=== PATIENT | female | born 1940 | race Two or more races ===

== ENCOUNTER 2024-05-12 07:58 | Inpatient (IN) | payer OTHER ==
[~2024-05-12] VITALS: Ht 170.2 cm; Wt 95.9 kg
[~2024-05-12 07:58] MED LIST: ACET-1080 PO; ATOR20TA PO; LOSA100T25 PO; MULT1CHW PO; NAP500T PO
[2024-05-12] MEDS: ROPIVACAINE 0.5% (5MG/ML) 20ML AMPULE IJ ONE ×2 (08:32→10:56)
[2024-05-12] MEDS: TRANEXAMIC ACID 20 ML ONE (08:32)
[2024-05-12] MEDS: ceFAZolin 2 GM/D5W50ml 50 ML IV ONE (08:49)
[2024-05-12] MEDS ORDERED: MIDAZOLAM HCL 2MG/2ML 2ml VIAL (1mg/ml) ONE (09:13)
[2024-05-12] MEDS ORDERED: fentaNYL CITRATE 100 MCG/2 ML VL ONE (09:13)
[2024-05-12] MEDS ORDERED: PROPOFOL 10 MG/ML 20 ML IV ONE (09:15)
[2024-05-12] MEDS: CEFEPIME 1GM/ 50ML 50 ML IV ONE ×2 (09:49→16:11)
[2024-05-12] MEDS: VANCOMYCIN HCL 1000 MG VL ONE (10:35)
[2024-05-12] MEDS ORDERED: ePHEDrine SULFATE 50 MG/ML AMP ONE (11:07)
[2024-05-12] MEDS ORDERED: PHENYLEPHRINE HCL 10 MG/ML VL ONE (11:07)
[2024-05-12] MEDS ORDERED: oxyCODONE HCL 5MG TAB PO PRN (11:30)
[2024-05-12] MEDS ORDERED: ONDANSETRON HCL 4 MG/2 ML VIAL IV PRN (11:45)
[2024-05-12 11:57] VITALS: O2SAT 100
[2024-05-12] MEDS ORDERED: HYDROmorphone HCL 2 MG/ML VL/or syr IV PRN (12:15)
[2024-05-12] MEDS: KETOROLAC TROMETH 30 MG/ML 1ML VIAL IV SCH (14:40)
[2024-05-12] MEDS: oxyCODONE HCL 5MG TAB PO PRN (14:46)
[2024-05-12] MEDS: ACETAMINOPHEN 325 MG TAB PO SCH (16:11)
[2024-05-12] MEDS: ceFAZolin 2 GM/D5W50ml 50 ML IV SCH (16:12)
[2024-05-12] MEDS: ONDANSETRON HCL 4 MG/2 ML VIAL IV ONE (16:12)
[2024-05-12 16:37] VITALS: BP 138/79; PULSE 86; RESP 18; TEMP 97.5; O2SAT 96
[2024-05-12] MEDS: SODIUM CHLORIDE 0.9% 1,000 ML IV SCH (16:43)
[2024-05-12 17:00] VITALS: BP 127/68; PULSE 102; RESP 15; TEMP 98.5; O2SAT 97
[2024-05-12 20:00] VITALS: PULSE 86; RESP 18; O2SAT 96
[2024-05-12 22:00] VITALS: BP 106/61; PULSE 100; RESP 16; TEMP 99.6; O2SAT 95
[2024-05-12] MEDS: PREGABALIN 25 MG CAP PO SCH (22:03)
[2024-05-13] VITALS (7 sets, daily range): BP systolic 97–133; BP diastolic 51–87; PULSE 61–103; RESP 16–18; TEMP 98–99.2; O2SAT 95–96
[2024-05-13 06:52] LABS: Basophils # (auto) 0 10 ^3/uL (0-0.2); Basophils % (auto) 0.5 % (0.0-2.0); Eosinophils # (auto) 0 10 ^3/uL (0-0.8); Eosinophils % (auto) 0.4 % (0.0-7.0); Hematocrit 30.1 % (36.0-46.0); Hemoglobin 10.2 g/dL (12.2-16.2); Lymphocytes # (auto) 1.4 10 ^3/uL (0.4-5.4); Lymphocytes % (auto) 18.7 % (10.0-50.0); Mean Corpuscular Hemoglobin 31.1 pg (28.0-32.0); Mean Corpuscular Hgb Conc. 33.9 g/dL (32.0-36.0); Mean Corpuscular Volume 91.8 fL (80.0-100.0); Monocytes # (auto) 0.9 10 ^3/uL (0-1.3); Monocytes % (auto) 11.9 % (0.0-12.0); Neutrophils # (auto) 5.2 10 ^3/uL (1.6-8.6); Neutrophils % (auto) 68.5 % (37.0-80.0); Platelet Count (auto) 215 10^3/uL (140-450); Red Blood Cells 3.28 10^6/uL (4.0-5.20); Red Cell Distribution Width 13.2 % (11.8-14.3); White Blood Cell 7.6 10^3/uL (4.4-10.8)
[2024-05-13 07:00] LABS: Calcium 8.8 mg/dL (8.7-10.4); Chloride 107 mmol/L (98-107); Potassium 3.4 mmol/L (3.5-5.1); Sodium 139 mmol/L (136-145)
[2024-05-13 07:01] LABS: Anion Gap 7 (5-15); Carbon Dioxide 25 mmol/L (20-30)
[2024-05-13 07:06] LABS: BUN/Creatinine Ratio 23.7 (10.0-20.0); Blood Urea Nitrogen 18 mg/dL (9-23); Glucose 115 mg/dL (74-106)
[2024-05-13] MEDS ORDERED: PATIENTS OWN MEDICATION (Losartan Potassium & Hydrochlo (Hyzaar) 1 TAB) PO SCH (10:00)
[2024-05-13] MEDS: ATORVASTATIN 20 MG TAB PO SCH (10:13)
[2024-05-13] MEDS: LOSARTAN POTASSIUM 50 MG TAB PO SCH (10:14)
[2024-05-13] MEDS: APIXABAN 2.5 MG TAB PO SCH (10:15)
[2024-05-13] MEDS: hydroCHLOROthiazide 25 MG TAB PO SCH (10:15)
[2024-05-13] MEDS: SULFAMETHOX W/TRIMETH(800/160MG) DS TAB PO SCH (11:05)
[2024-05-14] VITALS (7 sets, daily range): BP systolic 112–145; BP diastolic 59–71; PULSE 83–104; RESP 17–19; TEMP 98.5–99.6; O2SAT 93–98
[2024-05-14 11:09] LABS: Basophils # (auto) 0 10 ^3/uL (0-0.2); Basophils % (auto) 0.5 % (0.0-2.0); Eosinophils # (auto) 0.1 10 ^3/uL (0-0.8); Eosinophils % (auto) 1.2 % (0.0-7.0); Hematocrit 30.8 % (36.0-46.0); Hemoglobin 10.3 g/dL (12.2-16.2); Lymphocytes # (auto) 1.5 10 ^3/uL (0.4-5.4); Lymphocytes % (auto) 16.2 % (10.0-50.0); Mean Corpuscular Hemoglobin 30.8 pg (28.0-32.0); Mean Corpuscular Hgb Conc. 33.3 g/dL (32.0-36.0); Mean Corpuscular Volume 92.5 fL (80.0-100.0); Monocytes # (auto) 0.8 10 ^3/uL (0-1.3); Neutrophils # (auto) 6.6 10 ^3/uL (1.6-8.6); Neutrophils % (auto) 73.1 % (37.0-80.0); Platelet Count (auto) 241 10^3/uL (140-450); Red Blood Cells 3.33 10^6/uL (4.0-5.20); Red Cell Distribution Width 13.1 % (11.8-14.3)
== END 2024-05-14 20:15 | disposition home health service (06) | DRG 470 ==
LOC: SUR 07:58 → OVERFLOW 11:48 → WEST WING 15:35
PROVIDERS: ADMIT Orthopaedic Surgery; ATTEND Orthopaedic Surgery
PROC: 0SR904Z Replacement of Right Hip Joint with Ceramic on Polyethylene Synthetic Substitute, Open Approach (ICD-10-PCS; principal; 2024-05-12 09:46)
DX: M16.11 Unilateral primary osteoarthritis, right hip (principal)
CPT/HCPCS: 36415; 72170; 73502; 80048; 85025; 86850; 86900; 86901; 97110; 97116; 97163; 97530; G0378; J1885; J2250; J2704

== ENCOUNTER 2024-09-24 06:09 | Inpatient (IN) | payer OTHER ==
[~2024-09-24] VITALS: Ht 170.2 cm; Wt 95.8 kg
[2024-09-24] VITALS (7 sets, daily range): BP systolic 98–111; BP diastolic 49–72; PULSE 61–86; RESP 12–18; TEMP 97.6–97.7; O2SAT 89–98
[2024-09-24] MEDS ORDERED: ONDANSETRON HCL 4 MG/2 ML VIAL ONE (06:57)
[2024-09-24] MEDS ORDERED: DexAMETHasone SOD PHOS 10MG/1ML VIAL INJ ONE ×2 (06:57→07:14)
[2024-09-24] MEDS ORDERED: LIDOCAINE 1% INJ PF 5ML AMP ONE (06:58)
[2024-09-24] MEDS ORDERED: KETOROLAC TROMETH 30 MG/ML 1ML VIAL ONE (06:58)
[2024-09-24] MEDS ORDERED: GLYCOPYRROLATE 0.2 MG/ML 1ML VIAL ONE (06:58)
[2024-09-24] MEDS ORDERED: PROPOFOL 10 MG/ML 20 ML IV ONE ×2 (06:58→08:13)
[2024-09-24] MEDS: GABAPENTIN 300 MG CAP PO ONE (07:00)
[2024-09-24] MEDS: CELECOXIB 100 MG CAP PO ONE (07:00)
[2024-09-24] MEDS: ACETAMINOPHEN IV 1000 MG/100ML (10MG/ML) IV ONE (07:00)
[2024-09-24] MEDS ORDERED: EPINEPHrine HCL 1 MG/1 ML AMP ONE (07:14)
[2024-09-24] MEDS ORDERED: SODIUM CHLORIDE LOCK 10 ML ONE ×2 (07:35→07:37)
[2024-09-24] MEDS ORDERED: ePHEDrine SULFATE 50 MG/ML AMP ONE (07:37)
[2024-09-24] MEDS: VANCOMYCIN HCL 1000 MG VL ONE (08:55)
--- NOTE | 2024-09-24 09:00 | DVH ---
CLINICAL INDICATION: INTRAOP HIP TECHNIQUE: 1 radiographic views of the pelvis were obtained. Comparison: XY PELVIS AP on DOS: 05/12/24 FINDINGS/IMPRESSION: Postsurgical changes from left hip arthroplasty. Status post bilateral hip arthroplasties.
--- NOTE | 2024-09-24 09:09 | DVHOP2 ---
Operative Report - 2 Report Details Date: 09/24/24 Preop Diagnosis: Left hip degenerative arthritis Postop Diagnosis: Left hip degenerative arthritis Surgeon: Adrian Carey MD Information Broker: Eve BALLARD Anesthesiologist: Samy Carrera CRNA Anesthesia: Regional Drains: Pamela closed wound suction Implant: DonJoy origin stem size 12 with high offset neck plus eight, 36 ceramic head, 56 acetabular shell with flat poly liner Consent: The patient was informed of the risks and benefits of the procedure. These include but are not limited to complications of anesthesia, postoperative infection, incomplete relief of symptoms, recurrence of symptoms, damage to blood vessels, nerves and tendons, deep venous thrombosis, pulmonary embolism and possible need for repeat surgery in the future. Complications: None Estimated Blood Loss: 200 cc Fluids: See anesthesia record Findings: Complete obliteration of cartilage with eburnated bone, severe head deformity with extensive osteophyte formation distorting the anatomy with extensive osteophyte formation at the acetabulum with superior acetabular bone wear Indications for Surgery: Left hip degenerative arthritis with severe pain and functional impairment despite adequate nonoperative management Name of Procedure Performed Left total hip arthroplasty Procedure Details Procedure Details: The patient was brought to the operating room and given spinal anesthetic with adequate analgesia obtained. The patient was positioned lateral decubitus with the operative side up, stabilized with hip positioners. Axillary roll applied and lower extremities well-padded. Preop patient received IV Ancef, cefepime and IV tranexamic acid. Surgical timeout was performed verifying patient, laterality and procedure. The hip and lower extremity were prepped and draped in sterile fashion. Incision was made over the greater trochanter. Subcutaneous dissection and hemostasis were performed with Bovie and aqua mantis. I identified the fascia which was incised with Bovie and Charnley retractor inserted. I identified the gluteus medius that was split at the junction of its anterior and middle thirds with Bovie then incised off the anterior greater trochanter. I incised the anterior gluteus minimus which was elevated off the capsule. I elevated the reflected head of the rectus. I then performed anterior capsulectomy with Bovie. I extended capsular incision posterior medially and superior laterally. I used osteotome and rongeur to remove acetabular osteophytes covering the head. The head was dislocated. I also used the osteotome and rongeur to remove osteophytes distorting the exp osure of the femoral neck. Femoral neck cut was made with saw and head removed. Head diameter was calipered on the back table. I adjusted retractors to expose the acetabulum. I circumferentially removed labral tissue with Bovie. I removed foveal tissue with Bovie, curette and rongeur. I then began reaming sequentially paying attention to inclination and version as I went. I needed to ream deep to achieve adequate acetabular coverage and as a result the medial wall was quite thin so I applied reamings for bone graft. I trialed which was stable so acetabular implant was brought into the field and tapped into the acetabulum with good fixation achieved. I then brought up the flat liner which was spun to make sure there was no soft tissue entrapment then tapped in and stability verified. I then brought my attention to the proximal femur. The leg was placed in the sterile bag anteriorly. I cleaned up soft tissue at the greater trochanter shoulder with Bovie. I then used a rongeur to clip the lateral neck. I then used a box osteotome, canal finder and lateralizing rasp. I sequentially broached to size 12. I revised the femoral neck cut with calcar planer. I trialed with a various neck lengths and [36] head which was stable. Hip was stable with the plus eight high offset stem which was probably required due to the deep reaming. The Intraoperative AP pelvis x-ray was obtained to verify length, offset and implant size. The hip was dislocated. Neck and head trial removed. Broach was removed. I used osteotome and rongeur to remove extensive osteophytes around the acetabulum. I tapped in the femoral implant with good fixation achieved. I cleaned and dried the Mahoney taper and tapped on the ceramic head. The hip was again reduced and tested for stability which was good. I irrigated with xperience. I placed a 2 grams of vancomycin in the deep and superficial wound. I repaired the minimus and medius to the anterior greater trochanter with #[5] FiberWire in running fashion . I oversewed the repair with 0 Vicryl. I repaired the fascia with #1 Ethibond interrupted [id number]. Deep subcutaneous tissue was closed with 0 Vicryl. Superficial subcutaneous tissue was closed with 2-0 Vicryl. The skin was closed with yolanda. I then applied the Pamela closed wound suction. Patient tolerated the procedure well and was brought to the recovery room in stable condition. Condition Stable Disposition Still a Patient ADRIAN CAERY MD Sep 24, 2024 09:09
[2024-09-24] MEDS ORDERED: ONDANSETRON HCL 4 MG/2 ML VIAL IV PRN ×2 (09:15→09:45)
[2024-09-24] MEDS ORDERED: FLUMAZENIL 0.1 MG/ML INJ 10ML MDV IV PRN (09:45)
[2024-09-24] MEDS ORDERED: HYDROmorphone HCL 2 MG/ML VL/or syr IV PRN (09:45)
[2024-09-24] MEDS ORDERED: ePHEDrine SULFATE 50 MG/ML AMP IV PRN (09:45)
[2024-09-24] MEDS ORDERED: hydrALAZINE HCL 20 MG/ML VL IV PRN (09:45)
[2024-09-24] MEDS ORDERED: NALOXONE HCL 0.4 MG/ML VIAL IV PRN (09:45)
[2024-09-24] MEDS ORDERED: oxyCODONE HCL 5MG TAB PO PRN (09:45)
[2024-09-24] MEDS ORDERED: fentaNYL CITRATE 100 MCG/2 ML VL IV PRN (09:45)
[2024-09-24] MEDS: LOSARTAN POTASSIUM 50 MG TAB PO SCH (10:00)
[2024-09-24] MEDS: hydroCHLOROthiazide 25 MG TAB PO SCH (10:00)
[2024-09-24] MEDS: ATORVASTATIN 20 MG TAB PO SCH (10:00)
[2024-09-24] MEDS: PREGABALIN 25 MG CAP PO SCH (10:00)
--- NOTE | 2024-09-24 10:11 | DVH ---
XY PELVIS AP HISTORY: postop TECHNICAL DATA: Frontal view was obtained of the pelvis. COMPARISON: XY PELVIS AP on DOS: 09/24/24, XY PELVIS AP on DOS: 05/12/24 FINDINGS: Bilateral hip arthroplasty material appears intact and in alignment. The sacroiliac joints appear nor mal. There is no abnormality of the symphysis pubis. The hip joint spaces are symmetric. The proximal femurs demonstrate no abnormality. IMPRESSION: Bilateral hip arthroplasty material appears intact and in alignment.
[2024-09-24] MEDS: SODIUM CHLORIDE 0.9% 1,000 ML IV SCH (11:30)
[2024-09-24] MEDS: ACETAMINOPHEN 325 MG TAB PO SCH (12:00)
[2024-09-24] MEDS: KETOROLAC TROMETH 30 MG/ML 1ML VIAL IV SCH (12:00)
[2024-09-24] MEDS: CEFEPIME 1GM/ 50ML 50 ML IV ONE (12:26)
[2024-09-24] MEDS: TRANEXAMIC ACID 20 ML ONE (12:26)
[2024-09-24] MEDS: BUPIVACAINE 0.25% INJ 50ML VIAL ONE (12:26)
[2024-09-24] MEDS: ceFAZolin 1GM/50ML 100 ML IV ONE (12:27)
[2024-09-24] MEDS: ceFAZolin 2 GM/D5W100ml 0 ML IV ONE (12:27)
[2024-09-24] MEDS ORDERED: KETAMINE 50mg/ML 1ml syringe IV ONE (13:37)
[2024-09-24] MEDS ORDERED: ceFAZolin 2 GM/D5W50ml 50 ML IV SCH (14:00)
[2024-09-24] MEDS: oxyCODONE HCL 5MG TAB PO PRN ×2 (17:03→22:03)
[2024-09-24] MEDS ORDERED: PATIENTS OWN MEDICATION (Losartan Potassium & Hydrochlo (Hyzaar) 1 TAB) PO SCH (18:00)
[2024-09-24] MEDS: ceFAZolin 2 GM/D5W50ml 50 ML IV SCH (22:00)
[2024-09-25] VITALS (7 sets, daily range): BP systolic 96–139; BP diastolic 41–64; PULSE 74–102; RESP 17–21; TEMP 97.6–98.6; O2SAT 85–98
[2024-09-25 07:15] LABS: Basophils # (auto) 0 10 ^3/uL (0-0.2); Eosinophils # (auto) 0 10 ^3/uL (0-0.8); Hematocrit 23.9 % (36.0-46.0); Hemoglobin 8.1 g/dL (12.2-16.2); Lymphocytes # (auto) 1.1 10 ^3/uL (0.4-5.4); Monocytes # (auto) 0.9 10 ^3/uL (0-1.3); Red Cell Distribution Width 14.4 % (11.8-14.3); White Blood Cell 9.4 10^3/uL (4.4-10.8)
[2024-09-25 07:18] LABS: Basophils % (auto) 0.1 % (0.0-2.0); Lymphocytes % (auto) 12.2 % (10.0-50.0); Mean Corpuscular Hemoglobin 30.5 pg (28.0-32.0); Mean Corpuscular Volume 89.6 fL (80.0-100.0); Monocytes % (auto) 9.9 % (0.0-12.0); Neutrophils # (auto) 7.3 10 ^3/uL (1.6-8.6); Neutrophils % (auto) 77.8 % (37.0-80.0); Platelet Count (auto) 176 10^3/uL (140-450); Red Blood Cells 2.66 10^6/uL (4.0-5.20)
[2024-09-25 07:21] LABS: Anion Gap 3 (5-15); Carbon Dioxide 27 mmol/L (20-31); Chloride 107 mmol/L (98-107); Potassium 4.3 mmol/L (3.5-5.1); Sodium 137 mmol/L (136-145)
[2024-09-25 07:29] LABS: Blood Urea Nitrogen 25 mg/dL (9-23); Calcium 8.4 mg/dL (8.7-10.4); Glucose 147 mg/dL (74-106)
[2024-09-25] MEDS: APIXABAN 2.5 MG TAB PO SCH (10:33)
--- NOTE | 2024-09-25 11:04 | DVHPN2 ---
Progress Note - Dictate Date Seen: Sep 25, 2024 Medical Necessity Reason Pt with a Central, PICC or Fol: No Subjective c/o of unsteadiness with ambulation, pain well controlled vital signs Vital Sign Date Time Temp Pulse Resp B/P (MAP) Pulse Ox O2 Delivery O2 Flow Rate FiO2 09/25/24 10:35 97/48 09/25/24 07:42 98.6 83 18 93 98.6 09/24/24 20:00 Nasal Cannula* 2 28 Total Intake and Output 09/24/24 09/24/24 09/25/24 15:00 23:00 07:00 Intake Total 50 ml 1050 ml Output Total 1050 ml 500 ml 1000 ml Balance -1050 ml -450 ml 50 ml medications Current Medications Medications Dose Ordered Sig/Martha Route Start Time Stop Time Status Last Admin Dose Admin Atorvastatin Calcium 20 mg DAILY PO 09/24/24 10:00 09/25/24 10:32 20 MG Patient Own Medication 1 tab QPM PO 09/24/24 18:00 UNV Pregabalin 50 mg BID PO 09/24/24 10:00 09/25/24 10:34 50 MG Apixaban 2.5 mg BID PO 09/25/24 10:00 10/30/24 09:59 09/25/24 10:33 2.5 MG Sodium Chloride 1,000 ml @ 125 mls/hr Q8H IV 09/24/24 11:30 09/25/24 03:27 125 MLS/HR Acetaminophen 650 mg Q6HP PO 09/24/24 12:00 09/25/24 05:59 650 MG Ketorolac Tromethamine 15 mg Q6HR IV 09/24/24 12:00 09/29/24 11:59 09/25/24 05:59 15 MG Ondansetron HCl 4 mg Q4HP PRN IV 09/24/24 09:15 Oxycodone HCl 5 mg Q4HP PRN PO 09/24/24 11:30 09/24/24 22:03 5 MG Oxycodone HCl 10 mg Q4HP PRN PO 09/24/24 11:30 09/24/24 17:03 10 MG Losartan Potassium 50 mg DAILY PO 09/24/24 10:00 Hydrochlorothiazide 12.5 mg DAILY PO 09/24/24 10:00 Oxycodone HCl 10 mg ONCE PRN PO 09/24/24 09:45 objective A&Ox4 dressing with sanguinous staining but intact no calf edema or ttp distal nv intact laboratory and microbiology Laboratory Tests 09/25/24 06:57 Test 09/25/24 06:57 Range/Units Serum Glucose 147 H 74-106 mg/dL Assessment/Plan POD #1 s/p left total hip acute expected postop blood loss anemia Plan: DC in AM see orders Plan discussed with: Patient ADRIAN CAREY MD Sep 25, 2024 11:04
[2024-09-26 01:00] VITALS: BP 100/51; PULSE 94; RESP 19; TEMP 97.8; O2SAT 94
[2024-09-26 05:00] VITALS: BP 111/55; PULSE 87; RESP 19; TEMP 97.4; O2SAT 92
[2024-09-26 09:23] VITALS: BP 120/63; PULSE 83; RESP 16; TEMP 97.7; O2SAT 97
[2024-09-26 13:00] VITALS: BP 145/74; PULSE 98; RESP 18; TEMP 97.6; O2SAT 92
== END 2024-09-26 13:38 | disposition home health service (06) | DRG 470 ==
LOC: SUR 06:09 → OVERFLOW 11:28 → EAST 16:26
PROVIDERS: ADMIT Orthopaedic Surgery; ATTEND Orthopaedic Surgery
PROC: 0SRB0JZ Replacement of Left Hip Joint with Synthetic Substitute, Open Approach (ICD-10-PCS; principal; 2024-09-24 07:13)
DX: M16.12 Unilateral primary osteoarthritis, left hip (principal); D62 Acute posthemorrhagic anemia
CPT/HCPCS: 36415; 72170; 80048; 85025; 86850; 86900; 86901; 97110; 97116; 97163; G0378; J0131; J0171; J1100; J1885; J2405; J2704; J3490